=== PATIENT | female | born 1980 | race Caucasian/White ===

== ENCOUNTER 2016-11-08 10:26 | Emergency (ER) | payer BC ==
[2016-11-08 10:54] VITALS: BP 134/86; PULSE 82; RESP 18; TEMP 98.5; O2SAT 99
--- NOTE | 2016-11-08 11:14 | UCPHY ---
H & P Patient Type: New Chief Complaint Nursing Narrative: since saturday,intermiyently, has had fever, cough,sinus pressure and oscar ear pressure. no st HPI/ROS: Chief complaint: Cold symptoms History of present illness: This is a 36-year-old female who presents to the emergency department for cold symptoms. Patient reports she has been sick for the last 5 days. She primarily reports tactile fevers, runny nose, nasal congestion and ear pressure. She has subsequently developed chest congestion and a cough. She reports associated body aches and weakness. She states it began after she flew back from [place] on a plane. She has been using ibuprofen and Sudafed which has helped but not resolved the problem. She denies other associated signs or symptoms. - Personal History LMP (Females 10-55): 15-21 Days Ago Current Tetanus Diphtheria and Acellular Pertussis (TDAP): Yes - Medical/Surgical History Hx Asthma: No Hx Chronic Respiratory Disease: No Hx Diabetes: No Hx Cardiac Disease: No Hx Renal Disease: No Hx Cirrhosis: No Hx Alcoholism: No Hx HIV/AIDS: No Hx Splenectomy or Spleen Trauma: No Other PMH: rt neck lymph node removal - Family History Significant Family History: No pertinent family hx - Social History Smoking Status: Never smoked - Physical Exam Exam: General Appearance: Alert, Nontoxic. Eyes: Pupils equal and round no injection. ENT: Tympanic membranes are erythematous bilaterally, no evidence of perforation , external auditory canals, external ears and surrounding soft tissue including over the mastoids are unremarkable. Nasopharynx is injected. There is clear rhinorrhea. Oropharynx is not injected. There is no edema. There is no exudate. There is no asymmetry. The uvula is midline. No elevation of the tongue. There is no hoarseness, no drooling, no trismus, no stridor. Respiratory: No use of accessary muscles or evidence of respiratory distress. Occasional expiratory wheezing. No rhonchi or rales. Cardiac: Regular rate and rhythm Musculoskeletal: Neck is supple and non tender. Extremities have full range of motion and are non tender. Skin: No rashes or lesions. Neurological: Alert and oriented x4. No meningismus. Ambulating well. Constitutional: Initial Vital Signs Temperature (C) 36.9 C 11/08/16 10:51 Heart Rate 82 11/08/16 10:51 Respiratory Rate 18 11/08/16 10:51 Blood Pressure 134/86 H 11/08/16 10:51 O2 Sat (%) 99 11/08/16 10:51 O2 Delivery Mode Room Air Allergies/Adverse Reactions: cefaclor [From [facility]] Allergy (Verified 11/08/16 10:51) Home Medications: Medication Instructions Recorded AZITHROMYCIN [Z-PACK] 250 mg PO DAILY #6 tab 11/08/16 Albuterol [Proventil Inhaler HFA 2 puffs IH Q4 #1 mdi 11/08/16 (*)] Fluticasone Nasal [Flonase Nasal 2 sprays NASAL DAILY #1 mdi 11/08/16 Joiner (RX)] Medical Decision Making - Diagnostics Imaging: Chest x-ray negative ED Course/Re-evaluation: Patient seen under the supervision of my secondary supervising physician Dr. Kody Lizama. Patient presents to the clinic for evaluation of cold symptoms. On presentation patient is nontoxic. She is afebrile and vital signs are stable. Physical exam does reveal what appears to be a developing bilateral acute otitis media and occasional wheezing on auscultation of lung dave. Flu swab is negative. Chest x-ray is negative. I believe this is likely a viral syndrome. She is likely developing a secondary otitis media. Patient will be discharged home. Symptomatic care is discussed including the use of Flonase and an inhaler. Given the development of otitis media she is started on a Z- [place]ante. Home care is discussed. She is asked to follow up with a primary care doctor for recheck. Strict return precautions are given. Patient voiced understanding and agreement plan. Differential Diagnosis: Included but not limited to bronchitis, pneumonia, influenza - Data Points Laboratory Results: 11/08/16 11:00 Influenza Typ A,B (DFA) NEGATIVE FOR FLU (NEGATIVE) Departure - Departure Disposition: Home, Routine, Self-Care Clinical Impression: Viral syndrome, Otitis media Condition: Good Instructions: Viral Syndrome (ED) Additional Instructions: Follow-up with the primary care doctor this week for recheck You can use an [id number] antihistamine such as Claritin or Zyrtec Use ibuprofen 600 mg 3 times a day for the next 2-3 days Take prescribed medications as prescribed Drink plenty of fluids to stay hydrated If symptoms worsen or new symptoms develop return to the emergency department for recheck Referrals: NONE *PRIMARY CARE P,. [Primary Care Provider] - As per Instructions Kristine Abernathy MD [Medical Doctor] - As per Instructions Prescriptions: Fluticasone Nasal [Flonase Nasal Joiner (RX)] 2 sprays NASAL DAILY #1 mdi Albuterol [Proventil Inhaler HFA (*)] 2 puffs IH Q4 #1 mdi AZITHROMYCIN [Z-PACK] 250 mg PO DAILY #6 tab - PQRS PQRS Measurement: N/A
--- NOTE | 2016-11-08 11:42 | DX ---
Chest, PA and lateral. HISTORY: Cough FINDINGS: Heart size is within normal limits. Pulmonary vascularity appears normal. The lungs are kaushal ar. No evidence for pleural effusion or pneumothorax. No significant osseous abnormality. IMPRESSION: Normal chest x-ray.
== END 2016-11-08 11:55 | disposition home or self-care (01) ==
LOC: CED 10:26
DX: B34.9 Viral infection, unspecified (principal); H65.03 Acute serous otitis media, bilateral
CPT/HCPCS: 71020-PO; 87400-PO; G0463-PO